=== PATIENT | female | born 1990 | race Caucasian/White ===

== ENCOUNTER 2017-06-12 20:56 | Emergency (ER) | payer MEDICAID ==
[~2017-06-12 20:56] MED LIST: PREN-153 PO
== END 2017-06-12 21:19 | disposition left against medical advice (07) ==
LOC: ER 20:56
DX: R07.9 Chest pain, unspecified (principal); Z53.21 Procedure and treatment not carried out due to patient leaving prior to being seen by health care provider

== ENCOUNTER 2017-06-21 02:36 | Observation (INO) | payer MEDICAID | END 2017-06-21 02:46 | disposition left against medical advice (07) | DRG 560 | LOC: LDRP 02:36 → UNDODISOB 02:46 | PROVIDERS: ADMIT Obstetrics & Gynecology; ATTEND Obstetrics & Gynecology | DX: O80 Encounter for full-term uncomplicated delivery (principal); Z37.0 Single live birth; Z3A.41 41 weeks gestation of pregnancy | CPT/HCPCS: 99285; G0378 ==

== ENCOUNTER 2020-07-04 13:08 | Inpatient (IN) | payer MEDICAID, OTHER ==
[~2020-07-04] VITALS: Ht 160 cm; Wt 46.6 kg
[~2020-07-04 13:08] MED LIST changes: -PREN-153 PO; +PREN1TAB71 PO
[2020-07-04] MEDS ORDERED: PROMETHAZINE HCL 25 MG/ML 1ML IV PRN (13:30)
[2020-07-04] MEDS ORDERED: SODIUM CHLORIDE 0.9% 1,000 ML IVB ONE ×2 (13:30→16:45)
[2020-07-04 13:47] LABS: Basophils # (auto) 0.1 10 ^3/uL (0-0.2); Basophils % (auto) 0.5 % (0.0-2.0); Eosinophils # (auto) 0 10 ^3/uL (0-0.8); Hematocrit 42.6 % (36.0-46.0); Hemoglobin 14.7 g/dL (12.2-16.2); Lymphocytes # (auto) 1.3 10 ^3/uL (0.4-5.4); Lymphocytes % (auto) 8.6 % (10.0-50.0); Mean Corpuscular Hemoglobin 29.8 pg (28.0-32.0); Mean Corpuscular Hgb Conc. 34.6 g/dL (32.0-36.0); Mean Corpuscular Volume 86.1 fL (80.0-100.0); Monocytes # (auto) 1.4 10 ^3/uL (0-1.3); Monocytes % (auto) 8.9 % (0.0-12.0); Neutrophils # (auto) 12.5 10 ^3/uL (1.6-8.6); Nucleated Red Blood Cells % 0.1 %; Platelet Count (auto) 190 10^3/uL (140-450); Red Blood Cells 4.95 10^6/uL (4.0-5.20); Red Cell Distribution Width 13.7 % (11.8-14.3); White Blood Cell 15.2 10^3/uL (4.4-10.8)
[2020-07-04 14:11] LABS: Albumin 3.4 g/dL (3.4-5.0); Calcium 8.7 mg/dL (8.5-10.1); Potassium 3.2 mmol/L (3.5-5.1)
[2020-07-04 14:13] LABS: Bilirubin, Total 0.8 mg/dL (0.2-1.0); Total Protein 8.1 g/dL (6.4-8.2)
[2020-07-04 15:09] LABS: Magnesium 2.2 mg/dL (1.6-2.6)
[2020-07-04 16:35] LABS: Urine Bacteria FEW /hpf (None Seen); Urine Blood 3+ /uL (Negative); Urine Mucus FEW (None Seen); Urine Specific Gravity 1.011 (1.001-1.035); Urine WBC 509 /hpf (0 - 5); Urine WBC Clumps PRESENT /hpf (None Seen)
[2020-07-04] MEDS ORDERED: POTASSIUM CHL 20 Meq TABLET PO ONE (16:45)
[2020-07-04] MEDS ORDERED: cefTRIAXone 1GM/50ML D5W 50 ML IV ONE (16:45)
[2020-07-04 16:49] LABS: Alcohol, Urine < 3.0 mg/dL (0-10); Amphetamine Screen, Urine POSITIVE (NEGATIVE); Barbiturate Scree,Urine NEGATIVE (NEGATIVE); Benzodiazephine Screen, Urine NEGATIVE (NEGATIVE); Cannabinoid Screen, Urine NEGATIVE (NEGATIVE); Cocaine Screen, Urine NEGATIVE (NEGATIVE); Phencyclidine Screen, Urine NEGATIVE (NEGATIVE)
[2020-07-04 16:57] LABS: Opiate Scree,Urine POSITIVE (NEGATIVE)
[2020-07-04] MEDS ORDERED: ACETAMINOPHEN 325 MG TAB PO ONE (17:45)
[2020-07-04] MEDS ORDERED: IPRATROPIUM BROM 0.5 MG/2.5ML INH SOL NEB PRN (19:15)
[2020-07-04] MEDS ORDERED: ONDANSETRON HCL 4 MG/2 ML VIAL IV PRN (19:15)
[2020-07-04] MEDS ORDERED: MORPHINE SULF INJ 2 MG/ML SYRINGE 1ML IV PRN ×2 (19:15)
[2020-07-04] MEDS ORDERED: ALBUTEROL SULF 2.5 MG/0.5ML(0.5%) NEB SOLN NEB PRN (19:15)
[2020-07-04] MEDS ORDERED: ALPRAZolam 0.25 MG TAB PO PRN (19:15)
[2020-07-04] MEDS ORDERED: ACETAMINOPHEN 500 MG TAB PO PRN (19:15)
[2020-07-04] MEDS ORDERED: DOCUSATE SOD 100 MG CAP PO PRN (19:15)
[2020-07-04] MEDS ORDERED: NITROGLYCERIN 0.4 MG SL TAB SL PRN (19:15)
[2020-07-04 19:25] VITALS: BP 115/68
[2020-07-04] MEDS: SOD CHL 0.9%/ KCL 20MEQ 1,000 ML IV SCH (23:02)
[2020-07-04 23:16] VITALS: BP 101/51
[2020-07-05] MEDS: HYDROcodone-ACET 5/325MG TAB PO PRN ×2 (00:17→06:26)
[2020-07-05 04:34] VITALS: BP 105/56
[2020-07-05] MEDS: SOD CHL 0.9%/ KCL 20MEQ 1,000 ML IV SCH ×2 (04:53→13:10)
[2020-07-05 06:16] LABS: Basophils # (auto) 0 10 ^3/uL (0-0.2); Basophils % (auto) 0.2 % (0.0-2.0); Eosinophils # (auto) 0 10 ^3/uL (0-0.8); Eosinophils % (auto) 0.1 % (0.0-7.0); Hematocrit 37.5 % (36.0-46.0); Lymphocytes # (auto) 1.7 10 ^3/uL (0.4-5.4); Lymphocytes % (auto) 12.3 % (10.0-50.0); Mean Corpuscular Hemoglobin 30.1 pg (28.0-32.0); Mean Corpuscular Hgb Conc. 34.7 g/dL (32.0-36.0); Mean Corpuscular Volume 86.7 fL (80.0-100.0); Monocytes # (auto) 1.8 10 ^3/uL (0-1.3); Monocytes % (auto) 13.2 % (0.0-12.0); Neutrophils # (auto) 10.2 10 ^3/uL (1.6-8.6); Neutrophils % (auto) 74.2 % (37.0-80.0); Nucleated Red Blood Cells % 0.1 %; Platelet Count (auto) 162 10^3/uL (140-450); Red Blood Cells 4.32 10^6/uL (4.0-5.20); Red Cell Distribution Width 13.6 % (11.8-14.3); White Blood Cell 13.8 10^3/uL (4.4-10.8)
[2020-07-05 06:31] LABS: Albumin 2.6 g/dL (3.4-5.0); BUN/Creatinine Ratio 9.3; Potassium 4.2 mmol/L (3.5-5.1)
[2020-07-05 06:33] LABS: Bilirubin, Total 0.7 mg/dL (0.2-1.0); Total Protein 6.5 g/dL (6.4-8.2)
[2020-07-05 08:49] VITALS: BP 99/54
[2020-07-05] MEDS: FAMOTIDINE 20 MG TAB PO SCH (09:17)
[2020-07-05] MEDS ORDERED: cefTRIAXone 1GM/50ML D5W 50 ML IV ONE (12:00)
[2020-07-05 12:36] VITALS: BP 106/53
[2020-07-05 16:29] VITALS: BP 118/65
[2020-07-05 22:00] VITALS: BP 97/45
[2020-07-06] MEDS: SOD CHL 0.9%/ KCL 20MEQ 1,000 ML IV SCH ×2 (01:15→11:15)
[2020-07-06 05:00] VITALS: BP 90/53
[2020-07-06 05:28] VITALS: BP 105/51
[2020-07-06 06:58] LABS: Basophils # (auto) 0 10 ^3/uL (0-0.2); Basophils % (auto) 0.2 % (0.0-2.0); Eosinophils # (auto) 0.1 10 ^3/uL (0-0.8); Hematocrit 31.9 % (36.0-46.0); Lymphocytes # (auto) 2.1 10 ^3/uL (0.4-5.4); Lymphocytes % (auto) 21.6 % (10.0-50.0); Mean Corpuscular Hemoglobin 30.1 pg (28.0-32.0); Mean Corpuscular Hgb Conc. 34.6 g/dL (32.0-36.0); Mean Corpuscular Volume 86.9 fL (80.0-100.0); Monocytes # (auto) 1.3 10 ^3/uL (0-1.3); Monocytes % (auto) 13.6 % (0.0-12.0); Neutrophils # (auto) 6.2 10 ^3/uL (1.6-8.6); Neutrophils % (auto) 63.6 % (37.0-80.0); Platelet Count (auto) 154 10^3/uL (140-450); Red Blood Cells 3.67 10^6/uL (4.0-5.20); White Blood Cell 9.8 10^3/uL (4.4-10.8)
[2020-07-06 07:13] LABS: Potassium 3.5 mmol/L (3.5-5.1)
[2020-07-06 07:16] LABS: BUN/Creatinine Ratio 17.4
[2020-07-06 08:54] VITALS: BP 94/52
[2020-07-06] MEDS ORDERED: cefTRIAXone 1GM/50ML D5W 50 ML IV SCH (09:00)
[2020-07-06] MEDS ORDERED: SODIUM CHLORIDE 0.9% 1,000 ML IV ONE (09:30)
[2020-07-06] MEDS: FAMOTIDINE 20 MG TAB PO SCH (09:47)
[2020-07-06 12:43] VITALS: BP 98/65
[2020-07-06 13:03] VITALS: BP 98/60
[2020-07-09 11:59] LABS: Hepatitis B Surface Antibody Positive
[2020-07-09 12:30] LABS: Hepatitis A Total Antibody Positive
[2020-07-09 13:03] LABS: Hepatitis B Core Total AB Negative; Hepatitis B Surface Antigen Negative (Negative)
[2020-07-09 13:04] LABS: Hepatitis C Antibody Negative (Negative)
== END 2020-07-06 13:45 | disposition home or self-care (01) | DRG 720 ==
LOC: ER 13:08 → TELE 19:01 → TELE-CENTR 22:05
PROVIDERS: ADMIT Nurse Practitioner Acute Care; ATTEND Family Medicine
DX: A41.9 Sepsis, unspecified organism (principal); R64 Cachexia; E87.1 Hypo-osmolality and hyponatremia; E87.6 Hypokalemia; Z68.1 Body mass index [BMI] 19.9 or less, adult; E86.0 Dehydration; F12.90 Cannabis use, unspecified, uncomplicated; F15.10 Other stimulant abuse, uncomplicated; F17.210 Nicotine dependence, cigarettes, uncomplicated; N10 Acute pyelonephritis; Z20.822 Contact with and (suspected) exposure to COVID-19; Z82.49 Family history of ischemic heart disease and other diseases of the circulatory system
CPT/HCPCS: 36415; 74176; 76700; 80048; 80053; 80307; 81001; 83605; 83690; 83735; 84702; 85025; 86704; 86706; 86708; 86803; 87040; 87086; 87340; 87426; 96361; 96365; 96375; G0378; J0696